=== PATIENT | male | born 1970 | race Caucasian/White ===

== ENCOUNTER → 2016-07-12 | Outpatient (CLI) | payer OTHER ==
--- NOTE | 2016-07-12 23:51 | DX ---
Bilateral hips, 3 views each side. History: Bilateral hip pain. Comparison Study: August 25, 2009. Findings: Progressive left hip joint space narrowing, especially medially, compatible with moderate o steoarthritis. Right hip joint is stable in appearance with mild narrowing medially. Sacroiliac joints and symphysis pubis appear unremarkable. Impression: 1. Progressive left hip osteoarthritis, moderate severity. Stable right hip osteoarthritis, mild.
== END ==
LOC: CIMAGING 20:45
PROVIDERS: ATTEND Family Medicine Sports Medicine
DX: M16.0 Bilateral primary osteoarthritis of hip (principal)
CPT/HCPCS: 72190-PO

== ENCOUNTER → 2017-05-21 | Outpatient (CLI) | payer OTHER | LOC: FIMAGING 16:07 | PROVIDERS: ATTEND Family Medicine Sports Medicine | DX: M25.851 Other specified joint disorders, right hip (principal); M25.852 Other specified joint disorders, left hip ==

== ENCOUNTER → 2018-11-14 | Outpatient (CLI) | payer OTHER | LOC: FIMAGING 10:42 ==